=== PATIENT | male | born 1980 | race Asian ===

== ENCOUNTER → 2021-08-07 | Emergency (ER) | payer MEDICAID, OTHER ==
[~2021-08-07] VITALS: Ht 175.3 cm; Wt 78.2 kg
[~2021-08-07] MED LIST: CEPH-357 PO; NO HOME MEDS
[2021-08-07 00:25] VITALS: BP 118/88
== END | disposition home or self-care (01) ==
LOC: ER 00:15
DX: B34.9 Viral infection, unspecified (principal); Z20.822 Contact with and (suspected) exposure to COVID-19; R52 Pain, unspecified; Z72.89 Other problems related to lifestyle; Z79.2 Long term (current) use of antibiotics
CPT/HCPCS: 87635; 99283; C9803